=== PATIENT | male | born 2000 | race Hispanic/Latino ===

== ENCOUNTER 2021-09-29 23:31 | Emergency (ER) | payer MEDICAID, OTHER ==
[~2021-09-29] VITALS: Ht 182.9 cm; Wt 79.4 kg
[2021-09-30 01:33] VITALS: BP 120/54
[2021-09-30] MEDS ORDERED: IBUPROFEN 400 MG TABLET ONE (01:34)
[2021-09-30] MEDS ORDERED: IBUPROFEN 800 MG TAB PO ONE (02:00)
== END 2021-09-30 04:52 | disposition left against medical advice (07) ==
LOC: EDH 23:31
DX: U07.1 COVID-19 (principal); Z53.21 Procedure and treatment not carried out due to patient leaving prior to being seen by health care provider
CPT/HCPCS: 87426